=== PATIENT | male | born 1965 | race Asian ===

== ENCOUNTER 2021-12-26 23:16 | Emergency (ER) | payer BC ==
[2021-12-27 00:13] VITALS: BP 155/100; PULSE 70; RESP 16; TEMP 98
[2021-12-27] MEDS ORDERED: LIDOCAINE 1% INJ 10MG/ML (5 ML VIAL-PF) SQ ONE (01:14)
[2021-12-27] MEDS ORDERED: DIPH,PERTUS(ACELL)TETVAC-LF 0.5 ML VIAL IM ONE (01:45)
[2021-12-27] MEDS ORDERED: BACITRACIN OINT 1 EACH PACKET TOPICAL ONE (01:45)
--- NOTE | 2021-12-27 01:47 | ED ---
General Adult HPI - General Chief complaint: Wound/Laceration Stated complaint: fishhook in finger Time Seen by Provider: 12/27/21 01:00 Source: patient Mode of arrival: ambulatory Limitations: no limitations - History of Present Illness Initial comments: Patient is a 56-year-old male presenting with chief complaint of fishhook stuck in left pointer finger. This occurred this evening. Patient denies any numbness, tingling, weakness, loss of range of motion. Patient does not remember when his last tetanus shot was. - Related Data Allergies Allergy/AdvReac Type Severity Reaction Status Date / Time No Known Allergies Allergy Verified 12/27/21 00:13 Review of Systems ROS Statement: Those systems with pertinent positive or pertinent negative responses have been documented in the HPI. ROS Other: All systems not noted in ROS Statement are negative. Past Medical History Past Medical History: No Reported History History of Any Multi-Drug Resistant Organisms: None Reported Past Surgical History: No Surgical Hx Reported Past Psychological History: No Psychological Hx Reported Smoking Status: Never smoker Past Alcohol Use History: None Reported Past Drug Use History: None Reported General Exam Limitations: no limitations General appearance: alert, in no apparent distress Head exam: Present: atraumatic, normocephalic, normal inspection Eye exam: Present: normal appearance, EOMI. Absent: scleral icterus, periorbital swelling Neck exam: Present: normal inspection Left Hand Wrist exam: Present: other (Three-pronged fish hook stuck in the left pointer finger, full range of motion and sensation of the finger, neurovascularly intact.) Neurological exam: Present: alert, oriented X3, CN II-XII intact Psychiatric exam: Present: normal affect, normal mood Skin exam: Present: warm, dry, normal color. Absent: rash Course Vital Signs 12/27/21 00:11 Temperature 98 F Pulse Rate 70 Respiratory 16 Rate Blood Pressure 155/100 O2 Sat by Pulse 99 Oximetry Procedures - Forgein Body Removal Soft Tissue Consent Obtained: verbal consent Site: hand Anesthetic Used: lidocaine 1%, without epi Amount (mLs): 4 Foreign Body Suspected: Fish Hook Foreign Body Removed: yes Foreign Body Removal Technique: Forceps Patient Tolerated Procedure: well Medical Decision Making - Medical Decision Making Patient is a 56-year-old male presenting with chief complaint of fishhook stuck in the left pointer finger. This occurred this evening. Patient is unaware of his last tetanus. 1% lidocaine without epi was used to numb the finger. [place] was removed by pushing the ayse through, removing the ayse, and then pulling back on the remainder of the hook. Patient tolerated the procedure well. Full range of motion sensation after the procedure. Patient was given tetanus shot here, as well as bacitracin ointment for his wound. Educated on signs of infection. Follow-up with PCP in one week. Report back to ER with any new or worsening symptoms. Discussed return parameters and answered all questions. Patient conveyed verbal understanding and agreed to the plan. My attending is Dr. Cook. Disposition Clinical Impression: [place] injury to finger Disposition: HOME SELF-CARE Condition: Good Instructions (If sedation given, give patient instructions): Finger Laceration (ED) Additional Instructions: Follow-up with PCP this week. Report back to ER with any new or worsening symptoms. Monitor for signs of infection, including but not limited to redness, swelling, fever, chills, warmth, discharge. Keep the wound clean and covered. Is patient prescribed a controlled substance at d/c from ED?: No Referrals: None,Stated [Primary Care Provider] - 01/03/22 Time of Disposition: 01:47
== END 2021-12-27 02:30 | disposition home or self-care (01) ==
LOC: EC 23:16
DX: S60.451A Superficial foreign body of left index finger, initial encounter (principal); Z23 Encounter for immunization; W45.8XXA Other foreign body or object entering through skin, initial encounter
CPT/HCPCS: 90471; 90715; 99282